=== PATIENT | female | born 2005 | race Caucasian/White ===

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

== ENCOUNTER 2025-04-30 22:39 | Emergency (ER) | payer OTHER ==
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
[2025-04-30 23:10] LABS: Basophils # (A) 0.07 10*3/uL (0.00-0.10); Basophils % (A) 1.0 %; Eosinophils # (A) 0.10 10*3/uL (0.04-0.35); Eosinophils % (A) 1.4 %; HCT 38.6 % (37.2-46.3); HGB 13.5 g/dL (12.0-15.0); Lymphocytes # (A) 2.62 10*3/uL (0.90-5.00); Lymphocytes % (A) 36.8 %; MCH 30.6 pg (27.0-32.0); MCHC 35.0 g/dL (32.0-37.0); MCV 87.5 fL (80.0-97.0); Monocytes # (A) 0.29 10*3/uL (0.20-1.00); Monocytes % (A) 4.1 %; Neutrophils # (A) 3.98 10*3/uL (1.80-7.70); Neutrophils % (A) 56.0 %; Platelet Count 268 10*3/uL (140-440); RBC 4.41 10*6/uL (4.10-5.20); RDW 11.8 % (11.5-14.5); WBC 7.11 10*3/uL (4.50-10.00)
[2025-04-30 23:32] LABS: ALT 42 U/L (4-34); AST 95 U/L (14-36); African American GFR (CKD) >90 (>60 ml/min/1.73 sqM); Albumin 4.8 g/dL (3.5-5.0); Alkaline Phosphatase 50 U/L (38-126); Anion Gap 17 mmol/L; Blood Urea Nitrogen 7 mg/dL (7-17); Calcium 9.4 mg/dL (8.4-10.2); Carbon Dioxide 18 mmol/L (22-30); Chloride 112 mmol/L (98-107); Glucose 91 mg/dL (74-99); Non-African American GFR(CKD) >90 (>60 ml/min/1.73 sqM); Potassium 3.6 mmol/L (3.5-5.1); Sodium 147 mmol/L (137-145); Total Protein 7.1 g/dL (6.3-8.2)
[2025-05-01] MEDS: SODIUM CHLORIDE 0.9% 1,000 ML IV ONE (00:03)
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
[2025-05-01 01:14] LABS: INR 1.1 (<1.2); Prothrombin Time 12.1 sec (10.0-12.5)
[2025-05-01] MEDS: ACETAMINOPHEN TAB 325 MG TAB PO STA (01:24)
[2025-05-01] MEDS: IBUPROFEN 600 MG TAB PO STA (01:25)
[2025-05-01 01:36] LABS: Partial Thromboplastin Time 19.5 sec (22.0-30.0)
[2025-05-01 02:01] LABS: Bilirubin,Urine Negative (Negative); Blood,Urine Large (Negative); Budding Yeast,Urine Rare /hpf; Color,Urine Colorless; Glucose,Urine (UA) Negative (Negative); Hyaline Casts,Urine 1 /lpf (0-2); Ketones,Urine Negative (Negative); Leukocyte Esterase,Urine Negative (Negative); Mucus,Urine Rare /hpf; Nitrite,Urine Negative (Negative); PH, Urine 7.0 (5.0-8.0); Protein,Urine Negative (Negative); RBC,Urine 1 /hpf (0-5); Squamous Epithelial Cell,Urine 2 /hpf (0-4); Urobilinogen,Urine <2.0 mg/dL (<2.0); WBC,Urine 2 /hpf (0-5)
[2025-05-01 02:08] LABS: Specific Gravity,Urine >1.050 (1.001-1.035)
[2025-05-01 02:09] LABS: Barbiturate Screen,Urine Not Detected (NotDetected); Benzodiazepines Screen,Urine Not Detected (NotDetected); Opiate Screen,Urine Not Detected (NotDetected); Oxycodone Screen, Urine Not Detected (NotDetected); Phencyclidine Screen,Urine Not Detected (NotDetected); Tricyclic Antidepressant,Urine Not Detected (NotDetected); Urn Cannabinoid Scrn Detected (NotDetected)
[2025-05-01 02:58] VITALS: BP 125/80; PULSE 80; RESP 16; TEMP 98.9
== END 2025-05-01 02:58 | disposition home or self-care (01) ==
LOC: EC 22:39
DX: S30.1XXA Contusion of abdominal wall, initial encounter (principal); S20.219A Contusion of unspecified front wall of thorax, initial encounter; V49.40XA Driver injured in collision with unspecified motor vehicles in traffic accident, initial encounter; Y92.410 Unspecified street and highway as the place of occurrence of the external cause
CPT/HCPCS: 36415 ×2; 93005; 86900; 86901; 80053; 83605 ×2; 84484; 85025; 85610; 85730; 86850; 81001; 81025; 80306; 80320; 71045; 72125; 70450; 71260; 74177; 99285; 96360; Q9967